=== PATIENT | male | born 1960 | race Caucasian/White ===

== ENCOUNTER 2022-03-29 00:30 | Day surgery (SDC) | payer BC, SELFPAY ==
[2022-03-16 10:06] VITALS: BMI 34.8
[2022-03-29] MEDS: LACTATED RINGERS 1,000 ML 150 ML IV CONT (07:58)
[2022-03-29 08:00] VITALS: BP 140/89; PULSE 77; RESP 18; TEMP 36.1; O2SAT 96
--- NOTE | 2022-03-29 08:22 | WPDANESEPPF ---
Anes - Initial Pre Proc Eval Procedure: Operation Date: 03/29/22 09:00 Proposed Procedures p Screening Colonoscopy - Angel Goodson MD Date/Time: 03/29/22 08:22 Surgeon: Angel Goodson MD Pre Op Diagnosis: neoplasm screening Patient Data Age: 61 Gender: M Height: 1.75 m Weight: 111.1 kg Last Vital Signs Temp 36.1 C L 03/29/22 08:00 Pulse 77 03/29/22 08:00 Resp 18 03/29/22 08:00 BP 140/89 03/29/22 08:00 Pulse Ox 96 03/29/22 08:00 Allergies Allergy/AdvReac Type Severity Reaction Status Date / Time NKDA Allergy Unknown Other Uncoded 03/29/22 07:44 Home Medications Medication Instructions Recorded Confirmed Type amoxicillin 500 mg capsule 500 mg PO .COMPLEX #12 cap 07/08/20 03/29/22 Rx irbesartan 300 mg tablet 300 mg PO DAILY #90 tablet 07/18/21 03/29/22 Rx hydrochlorothiazide 12.5 mg capsule 12.5 mg PO DAILY #90 cap 11/01/21 03/29/22 Rx omeprazole 20 mg capsule,delayed 20 mg PO DAILY #30 cap 11/22/21 03/29/22 Rx release amlodipine 10 mg tablet 10 mg PO DAILY #90 tablet 12/22/21 03/29/22 Rx atorvastatin 10 mg tablet 10 mg PO DAILY #90 tablet 03/28/22 03/29/22 Rx escitalopram oxalate 10 mg tablet 10 mg PO DAILY #90 tablet 03/28/22 03/29/22 Rx Patient hx anesthesia problems: none Family hx anesthesia problems: none Results Review: All pre-operative results and documents have been reviewed as part of the pre-operative evaluation. [facility] Past Medical History Medical History (Updated 03/29/22 @ 18:08 by Eyad Argueta MD) Abnormal fasting glucose Adult BMI 38.0-38.9 kg/sq m Body mass index (bmi) 36.0-36.9, adult (08/13/19) Chronic pain in right shoulder Encounter for wellness examination in adult Essential (primary) hypertension GERD (gastroesophageal reflux disease) Mixed hyperlipidemia Obstructive sleep apnea Polyp of colon (03/29/22) 2 small polyps on colonoscopy 03/29/2022 transverse colon and descending colon with recheck in 5 years SBE (subacute bacterial endocarditis) prophylaxis candidate Sebaceous cyst Family History Family History (Updated 08/13/19 @ 15:46 by DOCTOR UNKNOWN) Sibling Family history of bipolar disorder Patient's sister is in good health Family history of malignant neoplasm of breast in first degree relative Mother Hypertension, Onset Age: 91 Family history of bronchitis Father Patient's father is , Onset Age: 78 Family history of lung cancer Social History Social History Smoking packs per day: 1 Smoking cigarettes per day: 20.0 Years smoked: 25 Smoking pack-years: 25.00 Smoking status: Former smoker Tobacco type: cigarettes Smoking end date: 11/26/97 Alcohol intake: current Drinks per week: 8 Substance use: never Substance use type: does not use Living arrangements: with family Spiritual care concerns: No Anes - Eval Final PreProcedure Day of Procedure 03/29/22 08:22 Patient weight: obese Heart: regular rate and rhythm Lungs: clear to auscultation and normal air movement Airway: Mallampati scale class II Neurological: alert and oriented Last oral intake: >/= 8 hours ASA classification: III Emergent: no Anesthetic plan: proceed Anesthesia type and monitoring: general GIVS and standard monitoring Results Review: All pre-operative results and documents have been reviewed as part of the pre-operative evaluation. Informed Consent: The patient's anesthetic plan and its attendant risks and benefits were discussed with the patient/family/POA. Questions were solicited and answers provided to the satisfaction of the patient/family/POA.
--- NOTE | 2022-03-29 08:33 | PM.HPGS ---
History of Present Illness History of Present Illness Consent: Risks, benefits, and alternatives have been discussed and questions answered. Patient agrees to proceed with procedure. Chief complaint: neoplasm screening Narrative: Tyler Moser is a 61 year old male here for screening colonoscopy, last one 10 years ago. Review of Systems Constitutional: Constitutional: Denies headache(s) and Denies weakness Eyes: Eyes: Denies blurry vision ENT: Reports Normal hearing present, Denies headache(s) and Denies neck pain Cardiovascular: Cardiovascular: Denies chest pain and Denies dyspnea Respiratory: Respiratory: Denies dyspnea Gastrointestinal: Gastrointestinal: Reports no additional gastrointestinal complaints Genitourinary: Genitourinary: Denies dysuria Musculoskeletal: Musculoskeletal: Denies neck pain Integumentary/Breasts: Skin/Breast: Denies dry skin Neurologic: Reports Normal hearing present, Denies headache(s) and Denies weakness Psychiatric: Psychiatric: Denies anxiety Endocrine: Endocrine: Denies change in body appearance Hematologic/Lymphatic: Hematologic/Lymphatic: Denies easy bleeding Allergic/Immunologic: Allergic/Immunologic: Denies urticaria PMFSH Past Medical History Medical History (Updated 03/29/22 @ 08:23 by Eulogio Reid DO) Abnormal fasting glucose Adult BMI 38.0-38.9 kg/sq m Body mass index (bmi) 36.0-36.9, adult (08/13/19) Chronic pain in right shoulder Encounter for wellness examination in adult Essential (primary) hypertension GERD (gastroesophageal reflux disease) Mixed hyperlipidemia Obstructive sleep apnea SBE (subacute bacterial endocarditis) prophylaxis candidate Sebaceous cyst Family History Family History (Updated 08/13/19 @ 15:46 by DOCTOR UNKNOWN) Sibling Family history of bipolar disorder Patient's sister is in good health Family history of malignant neoplasm of breast in first degree relative Mother Hypertension, Onset Age: 91 Family history of bronchitis Father Patient's father is , Onset Age: 78 Family history of lung cancer Social History Social History Smoking packs per day: 1 Smoking cigarettes per day: 20.0 Years smoked: 25 Smoking pack-years: 25.00 Smoking status: Former smoker Tobacco type: cigarettes Smoking end date: 11/26/97 Alcohol intake: current Drinks per week: 8 Substance use: never Substance use type: does not use Living arrangements: with family Spiritual care concerns: No Meds Home Medications and Allergies Home Medications Medication Instructions Recorded Confirmed Type amoxicillin 500 mg capsule 500 mg PO .COMPLEX #12 cap 07/08/20 03/29/22 Rx irbesartan 300 mg tablet 300 mg PO DAILY #90 tablet 07/18/21 03/29/22 Rx hydrochlorothiazide 12.5 mg capsule 12.5 mg PO DAILY #90 cap 11/01/21 03/29/22 Rx omeprazole 20 mg capsule,delayed 20 mg PO DAILY #30 cap 11/22/21 03/29/22 Rx release amlodipine 10 mg tablet 10 mg PO DAILY #90 tablet 12/22/21 03/29/22 Rx atorvastatin 10 mg tablet 10 mg PO DAILY #90 tablet 03/28/22 03/29/22 Rx escitalopram oxalate 10 mg tablet 10 mg PO DAILY #90 tablet 03/28/22 03/29/22 Rx Allergies Allergy/AdvReac Type Severity Reaction Status Date / Time NKDA Allergy Unknown Other Uncoded 03/29/22 07:44 Vital Signs Vital Signs - 24 hr 03/29/22 08:00 Temperature 96.9 F L Pulse Rate 77 Respiratory Rate 18 Blood Pressure 140/89 Pulse Oximetry 96 Exam Const: General: comfortable and no acute distress HENMT: General nose exam: Normal nares present Eyes: General: appearance normal, both eyes and all related structures Neck: Neck: no JVD Resp: Auscultation: clear to auscultation bilaterally Cardio: Rate: regular rate Rhythm: regular rhythm GI: Inspection: non-distended GI Palp: Yes Soft to palpation Skin: General skin exam: normal color Neuro: General: gait normal Sp
[2022-03-29 08:50] VITALS: BP 124/81; PULSE 79; RESP 31; O2SAT 97
[2022-03-29 09:00] VITALS: BP 124/85; PULSE 68; RESP 21; O2SAT 97
[2022-03-29 09:10] VITALS: BP 129/86; PULSE 57; RESP 22; O2SAT 98
== END 2022-03-29 09:37 | disposition home or self-care (01) ==
PROVIDERS: PCP Family Medicine; Visit Provider Internal Medicine Gastroenterology
PROC: 0DJD8ZZ Inspection of Lower Intestinal Tract, Via Natural or Artificial Opening Endoscopic (ICD-10-PCS; CPT 45378; principal; 2022-03-29 09:00)
DX: Z12.11 Encounter for screening for malignant neoplasm of colon (principal); D12.4 Benign neoplasm of descending colon; D12.3 Benign neoplasm of transverse colon; K57.30 Diverticulosis of large intestine without perforation or abscess without bleeding; I10 Essential (primary) hypertension; E78.2 Mixed hyperlipidemia; K21.9 Gastro-esophageal reflux disease without esophagitis; K64.8 Other hemorrhoids; M25.511 Pain in right shoulder; G89.29 Other chronic pain; G47.33 Obstructive sleep apnea (adult) (pediatric); Z87.891 Personal history of nicotine dependence
CPT/HCPCS: 45385; 88305; J2704; J7120

== ENCOUNTER 2022-09-28 09:36 | Outpatient (CLI) | payer OTHER, SELFPAY ==
--- NOTE | 2022-09-28 09:42 | ECG_ITS ---
Measurements Intervals [place] Rate: 66 P: 33 NC: 144 QRS: -3 QRSD: 89 T: -4 QT: 386 QTc: 405 Interpretive Statements SINUS RHYTHM BORDERLINE T WAVE ABNORMALITY- INFERIOR LEADS BORDERLINE ECG NO PREVIOUS ECG AVAILABLE FOR COMPARISON Electronically Signed On 09-28-2022 10:00:06 CDT by Hal Molina D.O.
== END 2022-09-28 09:37 | disposition home or self-care (01) ==
PROVIDERS: PCP Family Medicine; Visit Provider Family Medicine
DX: I10 Essential (primary) hypertension (principal); R94.31 Abnormal electrocardiogram [ECG] [EKG]
CPT/HCPCS: 93005

== ENCOUNTER 2022-12-18 09:35 | Outpatient (CLI) | payer OTHER, SELFPAY ==
--- NOTE | 2022-12-18 09:51 | EST_ITS ---
Patient Info Name: Tyler Moser Age: 62 years : 1960 Gender: Male Ht: 68 in Wt: 245 lbs BSA: 2.36 m2 HR: 66 bpm BP: 142 / 87 mmHg Heart Rhythm: Sinus Rhythm Exam Date: 12/18/2022 10:01 AM Exam Location: [facility] Stress Patient Status: Outpatient Admit Date: 12/18/2022 Staff Ordering Physician: Eyad Argueta MD Attending Provider: Eyad Argueta MD Exercise Technologist: Rosenda Wolf CT Exercise Physician: Hal Molina DO Exam Type: CA stress test treadmill Study Info Indications R94.31 - Abnormal electrocardiogram ECG EKG A treadmill exercise stress test was performed. Summary 1. 1. Negative Abhinav exercise stress test for ischemic ST changes by ECG criteria. 2. 2. Good functional capacity, achieving 10 METs of workload. 3. 3. Baseline hypertension with hypertensive response to exercise. 4. 4. Appropriate HR response to exercise. 5. 5. Appropriate HR recovery at 1 minute post exercise. 6. 6. No imaging with stress testing. 7. 7. Patient informed of the above results. Protocol: Abhinav Stress ECG Details Stage: REST Duration (min): 1 min : 7 sec Speed (mph): 0.0 Grade (%): 0 HR (bpm): 65 SBP (mmHg): 142 DBP (mmHg): 87 METS: --- Stage: REST Duration (min): 6 min : 6 sec Speed (mph): 0.0 Grade (%): 0 HR (bpm): 76 SBP (mmHg): 142 DBP (mmHg): 87 METS: --- Stage: STAGE 1 Duration (min): 1 min : 0 sec Speed (mph): 1.7 Grade (%): 10 HR (bpm): 103 SBP (mmHg): 142 DBP (mmHg): 87 METS: --- Stage: STAGE 1 Duration (min): 2 min : 0 sec Speed (mph): 1.7 Grade (%): 10 HR (bpm): 111 SBP (mmHg): 142 DBP (mmHg): 87 METS: --- Stage: STAGE 1 Duration (min): 3 min : 0 sec Speed (mph): 1.7 Grade (%): 10 HR (bpm): 109 SBP (mmHg): 191 DBP (mmHg): 80 METS: --- Stage: STAGE 2 Duration (min): 1 min : 0 sec Speed (mph): 2.5 Grade (%): 12 HR (bpm): 122 SBP (mmHg): 191 DBP (mmHg): 80 METS: --- Stage: STAGE 2 Duration (min): 2 min : 0 sec Speed (mph): 2.5 Grade (%): 12 HR (bpm): 128 SBP (mmHg): 191 DBP (mmHg): 80 METS: --- Stage: STAGE 2 Duration (min): 3 min : 0 sec Speed (mph): 2.5 Grade (%): 12 HR (bpm): 130 SBP (mmHg): 191 DBP (mmHg): 89 METS: --- Stage: STAGE 3 Duration (min): 1 min : 0 sec Speed (mph): 3.4 Grade (%): 14 HR (bpm): 141 SBP (mmHg): 211 DBP (mmHg): 92 METS: --- Stage: STAGE 3 Duration (min): 2 min : 0 sec Speed (mph): 3.4 Grade (%): 14 HR (bpm): 146 SBP (mmHg): 211 DBP (mmHg): 92 METS: --- Stage: STAGE 3 Duration (min): 2 min : 0 sec Speed (mph): 3.4 Grade (%): 14 HR (bpm): 146 SBP (mmHg): 211 DBP (mmHg): 92 METS: --- Stage: RECOVERY Duration (min): 0 min : 59 sec Speed (mph): 0.0 Grade (%): 0 HR (bpm): 118
== END 2022-12-18 09:36 | disposition home or self-care (01) ==
PROVIDERS: PCP Family Medicine; Visit Provider Family Medicine
DX: R94.31 Abnormal electrocardiogram [ECG] [EKG] (principal); E78.2 Mixed hyperlipidemia; I10 Essential (primary) hypertension
CPT/HCPCS: 93017